=== PATIENT | male | born 1995 | race American Indian/Alaskan Native ===

== ENCOUNTER 2019-05-02 17:39 | Emergency (ER) | payer SELFPAY ==
[2019-05-02] MEDS ORDERED: TYLENOL PO ONE (19:58)
[2019-05-02] MEDS ORDERED: TYLENOL ONE (20:02)
--- NOTE | 2019-05-02 20:18 | Event Note ---
ED Screening Note ED Screening Note: This initial assessment/diagnostic orders/clinical plan/treatment(s) is/are subject to change based on patients health status, clinical progression and re- assessment by fellow clinical providers in the ED. Further treatment and workup at subsequent clinical providers discretion. Patient/guardian urged not to elope from the ED as their condition may be serious if not clinically assessed and managed. Initial orders include: 23yo BM states that he has severe throat pain, congestion and HENDERSON x 4 days. It difficult to eat and drink fluids. OTC medications has not given any resolve.
[2019-05-02] MEDS ORDERED: IBUPROFEN PO ONE (22:26)
--- NOTE | 2019-05-02 23:22 | Emergency Department Report ---
ED ENT HPI - General Chief complaint: Headache Stated complaint: HIGH FEVER/SWEATS Time Seen by Provider: 05/02/19 22:25 Source: patient Mode of arrival: Ambulatory Limitations: No Limitations - History of Present Illness Initial comments: 23-year-old male presents to the emergency room for complaint of a headache sore throat and fever for 3-4 days. Patient reports that he has some mild nausea. Patient reports pain is worse with swallowing. Patient took [id number] TheraFlu and Mucinex but has taken nothing for pain. She denies any past med ical history currently takes no medications on a daily basis and has no known drug allergies. MD complaint: sore throat Onset/Timin -: days(s) Location: throat Quality: stabbing, aching Consistency: constant Improves with: none Worsens with: swallowing Associated Symptoms: fever, pain with swallowing, sore throat, other (headache) - Related Data Previous Rx's Medication Instructions Recorded Last Taken Type Ibuprofen [Motrin 800 MG tab] 800 mg PO Q8HR PRN #30 tablet 05/02/19 Unknown Rx Allergies Allergy/AdvReac Type Severity Reaction Status Date / Time banana Allergy Anaphylaxis Verified 05/02/19 17:47 ED Dental HPI - General Chief complaint: Headache Stated complaint: HIGH FEVER/SWEATS Time Seen by Provider: 05/02/19 22:25 Source: patient Mode of arrival: Ambulatory Limitations: No Limitations - Related Data Previous Rx's Medication Instructions Recorded Last Taken Type Ibuprofen [Motrin 800 MG tab] 800 mg PO Q8HR PRN #30 tablet 05/02/19 Unknown Rx Allergies Allergy/AdvReac Type Severity Reaction Status Date / Time banana Allergy Anaphylaxis Verified 05/02/19 17:47 ED Review of Systems ROS: Stated complaint: HIGH FEVER/SWEATS Other details as noted in HPI Constitutional: chills, fever Eyes: denies: eye pain, eye discharge, vision change ENT: throat pain Respiratory: denies: cough, shortness of breath, wheezing Cardiovascular: denies: chest pain, palpitations Gastrointestinal: nausea Neurological: headache ED Past Medical Hx - Past Medical History Previous Medical History?: No - Surgical History Past Surgical History?: No - Social History Smoking Status: Never Smoker Substance Use Type: Marijuana - Medications Home Medications: Home Medications Medication Instructions Recorded Confirmed Last Taken Type Ibuprofen [Motrin 800 MG tab] 800 mg PO Q8HR PRN #30 tablet 05/02/19 Unknown Rx ED Physical Exam - General Limitations: No Limitations ED Course Vital Signs 05/02/19 05/02/19 05/02/19 18:45 22:03 22:56 Temperature 100.3 F H 101.5 F H Pulse Rate 103 H Respiratory 16 18 Rate Blood Pressure 127/83 O2 Sat by Pulse 98 Oximetry ED Medical Decision Making - Medical Decision Making 23-year-old male presents to the emergency room for complaint of a headache sore throat and fever for 3-4 days. Patient reports that he has some mild nausea. Patient reports pain is worse with swallowing. Patient took [id number] TheraFlu and Mucinex but has taken nothing for pain. She denies any past medical history currently takes no medications on a daily basis and has no known drug allergies. Rapid strep and rapid flu are both negative. 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 Stability discharged home diagnoses of viral syndrome. Critical care attestation.: If time is entered above; I have spent that time in minutes in the direct care of this critically ill patient, excluding procedure time. ED Disposition Clinical Impression: Acute viral syndrome Acute tonsillitis Qualifiers: Pharyngitis/tonsillitis etiology: other specified organisms Qualified Code(s): J03.80 - Acute tonsillitis due to other specified organisms; J03.8 - Acute tonsillitis due to other specified organisms Disposition: DC-01 TO HOME OR SELFCARE Is pt being admited?: No Does the pt Need Aspirin: No Condition: Stable Instructions: Viral Syndrome (ED), Tonsillitis (ED) Additional Instructions: Strep and influenza/flu test were all negative. Please continue with ibuprofen increase your fluid intake of the should diet as tolerated. Follow-up with the community clinic if her symptoms persist or gets worse. Prescriptions: Ibuprofen [Motrin 800 MG tab] 800 mg PO Q8HR PRN #30 tablet PRN Reason: Pain , Severe (7-10) Referrals: PRIMARY CARE, [Primary Care Provider] - 3-5 Days [facility] [Provider Group] - 3-5 Days Forms: Work/School Release Form(ED)
[2019-05-02 23:46] VITALS: BP 122/78
== END 2019-05-02 23:20 | disposition home or self-care (01) ==
LOC: ED 17:39
DX: J03.80 Acute tonsillitis due to other specified organisms (principal); F12.10 Cannabis abuse, uncomplicated; Z91.018 Allergy to other foods
CPT/HCPCS: 87116; 87400; 87430